=== PATIENT | female | born 1980 | race Caucasian/White ===

== ENCOUNTER 2021-11-08 19:10 | Emergency (ER) | payer BC ==
[2021-11-08] MEDS ORDERED: ZOFRAN ODT 4 MG PO ONE (19:20)
[2021-11-08] MEDS ORDERED: TORAdol 30 mg Injection ONE (19:26)
[2021-11-08] MEDS ORDERED: ZOFRAN ODT 4 MG ONE (19:26)
[2021-11-08] MEDS ORDERED: TORAdol 30 mg Injection IM ONE (19:27)
--- NOTE | 2021-11-08 19:59 | ERPHSYRPT ---
- History of Present Illness Time Seen by Provider: 11/08/21 19:56 Source: patient Exam Limitations: no limitations Patient Subjective Stated Complaint: pt state "I fell down three steps and heard it pop." Triage Nursing Assessment: pt came into the er via wheelchair; pt is axo x4; c/o rt foot injury; pt states 7/10 pain to rt foot; strong rt pedal pulses; swelling present to top of rt foot; no bruise present; good cap refill; hypertension; tac hycardic Physician History: pt state "I fell down three steps and heard it pop." c/o rt foot injury; pt states 7/10 pain to rt foot; strong rt pedal pulses; swelling present to top of rt foot; no bruise present; Method of Injury: fell Occurred: just prior to arrival Quality: constant Severity of Pain-Max: moderate Severity of Pain-Current: moderate Lower Extremities Pain: foot: right, ankle: right Modifying Factors: Improves With: cold therapy Associated Symptoms: unable to bear weight Allergies/Adverse Reactions: nut - unspecified Allergy (Verified 11/08/21 19:16) Home Medications: Albuterol/Ipratropium 3ml Neb* [DUONEB 0.5-3 MG/3 ml Neb] 3 ml IH TIDPRN 06/26/14 [History] Cetirizine HCl [Zyrtec] 10 mg PO DAILY 06/26/14 [History] Budesonide/Formoterol Fumarate [Symbicort 160-4.5 Mcg Inhaler] 6 gm IH BID 11/27/15 [History] Vits W-Ca,Fe,FA(<1Mg) [] 1 each PO DAILY 11/27/15 [History] Hx Tetanus, Diphtheria Vaccination/Date Given: Yes Hx Influenza Vaccination/Date Given: Yes Hx Pneumococcal Vaccination/Date Given: No Immunizations Up to Date: Yes Travel Risk - International Travel Have you traveled outside of the country in past 3 weeks: No - Coronavirus Screening Are you exhibiting any of the following symptoms?: No Close contact with a COVID-19 positive Pt in past 14-21 Days: No - Vaccine Status Have you recieved a Covid-19 vaccination: Yes Developer Evangelist: Moderna - Vaccination Dates Date of 2cond Vaccination (if applicable): 11/08 - Review of Systems Constitutional: No Symptoms Eyes: No Symptoms Ears, Nose, & Throat: No Symptoms Respiratory: No Symptoms Cardiac: No Symptoms Abdominal/Gastrointestinal: No Symptoms Genitourinary Symptoms: No Symptoms Musculoskeletal: Fall, Joint Pain (right ankle), Joint Swelling - Past Medical History Pertinent Past Medical History: Yes Neurological History: Migraines ENT History: No Pertinent History Cardiac History: No Pertinent History Respiratory History: Asthma, Sleep Apnea Endocrine Medical History: No Pertinent History Musculoskeletal History: No Pertinent History GI Medical History: GERD, Gallbladder Disease History: No Pertinent History Psycho-Social History: No Pertinent History Female Reproductive Disorders: No Pertinent History - Past Surgical History Past Surgical History: Yes Neuro Surgical History: No Pertinent History Cardiac: No Pertinent History Respiratory: No Pertinent History Gastrointestinal: No Pertinent History Genitourinary: No Pertinent History Musculoskeletal: No Pertinent History Female Surgical History: Section Other Surgical History: csection times 2 - Social History Smoking Status: Never smoker Exposure to second hand smoke: No Drug Use: none Patient Lives Alone: No - Female History Hx Now: No - Nursing Vital Signs Nursing Vital Signs: Initial Vital Signs Temperature 97.7 F 11/08/21 19:17 Pulse Rate 113 H 11/08/21 19:17 Respiratory Rate 22 11/08/21 19:17 Blood Pressure 186/105 11/08/21 19:17 O2 Sat by Pulse Oximetry 99 11/08/21 19:17 Pain Scale Pain Intensity 7 - Physical Exam General Appearance: no apparent distress Eyes, Ears, Nose, Throat Exam: normal ENT inspection Neck Exam: normal inspection Cardiovascular/Respiratory Exam: chest non-tender Gastrointestinal/Abdominal Exam: non-tender Back Exam: normal inspection Ankle Exam: right ankle: soft tissue tenderness Foot Exam: right foot: soft tissue tenderness Neuro/Tendon Exam: normal sensation Mental Status Exam: alert, oriented x 3 Skin Exam: normal color SpO2 Interpretation: normal SpO2: 99 O2 Delivery: Room Air - Course Nursing assessment & vital signs reviewed: Yes - Radiology Exams Right Ankle X-ray Interpretation: Reviewed by me, Teleradiologist Report, Negative, No Fracture, No Subluxation Ordered Tests: Active Orders 24 hr Category Date Time Status ANKLE (3 VIEWS) Stat Exams 11/08/21 19:20 Taken FOOT (MINIMUM 3 VIEWS) Stat Exams 11/08/21 19:20 Taken Medication Summary Discontinued Medications Generic Name Dose Route Start Last Admin Trade Name Freq PRN Reason Stop Dose Admin Ketorolac Tromethamine 60 mg 11/08/21 19:27 11/08/21 19:29 Ketorolac Tromethamine 30 Mg/Ml Inj IM 11/08/21 19:28 60 mg STAT ONE Administration Ketorolac Tromethamine Confirm 11/08/21 19:26 Ketorolac Tromethamine 30 Mg/Ml Inj Administered 11/08/21 19:27 Dose 60 mg .ROUTE .STK-MED ONE Ondansetron HCl 4 mg 11/08/21 19:20 11/08/21 19:29 Zofran 4 Mg/Udtablet Orally Disintegrating PO 11/08/21 19:21 4 mg STAT ONE Administration Ondansetron HCl Confirm 11/08/21 19:26 Zofran 4 Mg/Udtablet Orally Disintegrating Administered 11/08/21 19:27 Dose 4 mg .ROUTE .STK-MED ONE - Progress Progress: improved, pain not gone completely Counseled pt/family regarding: diagnosis, need for follow-up, rad results - Departure Departure Disposition: Home Clinical Impression: Right ankle sprain Qualifiers: Encounter type: initial encounter Involved ligament of ankle: deltoid ligament Qualified Code(s): S93.421A - Sprain of deltoid ligament of right ankle, initial encounter Condition: Stable Critical Care Time: No Referrals: KAMALA BAUTISTA [Primary Care Provider] - Follow up/PCP as directed Instructions: Foot Sprain (DC) Additional Instructions: Discharge/Care Plan MELIA KENNY was seen on 11/08/21 in the Emergency Room. The patient was counseled regarding Diagnosis,Lab results, Imaging studies, need for follow up and when to return to the Emergency Room. Prescriptions given: Discharge Note I have spoken with the patient and/or caregivers. I have explained the patient's condition, diagnosis and treatment plan based on the information available to me at this time. I have answered the patient's and/or caregiver's questions and addressed any concerns. The patient and/or caregivers have as good understanding of the patient's diagnosis, condition and treatment plan as can be expected at this point. The vital signs have been stable. The patient's condition is stable and appropriate for discharge from the emergency department. The patient will pursue further outpatient evaluation with the primary care physician or other designated or consulting physician as outlined in the discharge instructions. The patient and/or caregivers are agreeable to this plan of care and follow-up instructions have been explained in detail. The patient and/or caregivers have received these instruction. The patient/and or caregivers are aware that any significant change in condition or worsening of symptoms should prompt an immediate return to this or the closest emergency department or call 911. MELIA KENNY was seen on 11/08/21 n the Emergency Room. At that time you were treated for an emergent condition, during your visit Laboratory, Radiology and/or other procedures may have been ordered. It is very important that you follow-up with your Primary Care Physician KAMALA BAUTISTA within the next 24-48 hours to review your Emergency Room visit and the final results of testing that was ordered. Some test results such as Urine Cultures, Blood Cultures, and other cultures if ordered will not be finalized for 24-48 hours. If you do not have a Primary Care Provider please call the medical records department at [phone] ext [phone] to obtain a copy of your results or you may sign into our patient portal to obtain these results by visiting us @ [email or web address] and completing the following steps: 1. Click on the Patient Portal link 2. Click the Patient Self Enrollment Link to complete the enrollment form and entering your 3. Once the enrollment form is completed you will receive an email with a temporary ID and password at the email address you provided. 4. Next choose a user name and password. Your user name must be at least 4 characters long and your password must be at least 4 characters long. 5. Choose a security question from the list and provide your answer to the question. If you already have signed into the Health Portal you may access your Health Care Information 11/01 by the following steps: 1. Login to our website @ [email or web address] 2. Enter your original user name and password. FAQS The [facility] Health Portal is an online tool that contains your Lab Results, Radiology Reports, Visit History, Discharge Instructions and Health Summary Lab and Radiology Results will not be available for 72 hours on the portal. The Portal is a secure site, passwords are encryted and URLs are re-written so they cannot be copied and pasted. You and authorized family members are the only ones who can access your Portal. Also there is a timeout feature that protects your information if you leave the Portal page open. If you have technical difficulty please use the Contact Us link on the page this will allow you to submit any questions you have regarding the Portal or you may contact the Medical Record Department at [phone] ext [phone]. Take 500 mg Tylenol with 400 mg ibuprofen 3 times a day with food for next 2 to 3 days. Keep your ankle brace for next 2 to 3 days. Follow-up with outpatient Ortho clinic either at [facility] at [facility].
[2021-11-08 20:28] VITALS: BP 184/86; PULSE 100; O2SAT 97
--- NOTE | 2021-11-09 08:22 | XRAY ---
Indication: Pain following fall/twisting injury. Comparison: None 3 view right ankle demonstrates small posterior/plantar heel spurs. No other bony, articular, or soft tissue abnormalities. Comment: Preliminary interpretation made by C. No critical discrepancy.
--- NOTE | 2021-11-09 08:22 | XRAY ---
Indication: Pain following fall/twisting injury. Comparison: None 3 nonweightbearing views right foot demonstrates small posterior/plantar heel spurs. No other bony, articular, or soft tissue abnormalities. Comment: Preliminary interpretation made by C. No critical discrepancy.
== END 2021-11-08 20:28 | disposition home or self-care (01) ==
LOC: ED 19:10
DX: S93.421A Sprain of deltoid ligament of right ankle, initial encounter (principal); W10.9XXA Fall (on) (from) unspecified stairs and steps, initial encounter; M25.571 Pain in right ankle and joints of right foot
CPT/HCPCS: 73610; 73630; 96372; 99284; J1885; Q0162

== ENCOUNTER 2022-11-13 06:34 | Day surgery (SDC) | payer BC ==
[~2022-11-13 06:34] MED LIST: Marcaine Mpf 0.5% Vial 30 Ml ONE; Xylocaine 1% Vial 30 ML PF IJ ONE
[2022-11-13] MEDS ORDERED: EXPAREL 133 MG/10 ML VIAL IJ ONE (06:35)
[2022-11-13] MEDS ORDERED: Transderm Scop 1.5MG Patch TOP PRN (06:53)
[2022-11-13] MEDS ORDERED: Reglan 10 MG/2 ML IV ONE (06:53)
[2022-11-13] MEDS ORDERED: Pepcid 20 MG VIAL IV ONE ×2 (06:53→07:23)
[2022-11-13 06:59] LABS: HCG URINE TEST NEGATIVE (NEGATIVE)
[2022-11-13] MEDS ORDERED: CEFAZOLIN 2 GM-D5W BAG** 2 GM/50 ML ML IV SCH (07:00)
[2022-11-13] MEDS ORDERED: Lactated Ringers 1,000 ML IV SCH (07:00)
[2022-11-13] MEDS ORDERED: Sodium Chloride 3 ML UD NEBULES IH ONE (07:00)
[2022-11-13] MEDS ORDERED: Xopenex 1.25 MG/0.5 ML UD NEBULE IH ONE (07:00)
[2022-11-13] MEDS ORDERED: Transderm Scop 1.5MG Patch ONE (07:23)
[2022-11-13] MEDS ORDERED: Reglan 10 MG/2 ML ONE (07:23)
[2022-11-13] MEDS ORDERED: Versed 2 MG/2 ML Injection ONE ×2 (07:23→08:47)
[2022-11-13] MEDS ORDERED: CEFAZOLIN 2 GM-D5W BAG** 2 GM/50 ML ML IV ONE (07:23)
[2022-11-13] MEDS ORDERED: Lactated Ringers 1,000 ML IV ONE (07:24)
[2022-11-13] MEDS ORDERED: Versed 2 MG/2 ML Injection IV PRN (07:29)
[2022-11-13] MEDS ORDERED: Epinephrine Preservative Free 1 MG/ML ONE (07:31)
[2022-11-13 07:43] LABS: Hematocrit 43.5 % (35-47); Hemoglobin 14.1 g/dL (12.0-16.0); Mean Cell Volume 88.8 fL (78-100); Mean Corpuscular Hemoglobin 28.8 pg (26-32); Mean Corpuscular Hgb Concent. 32.4 g/dL (32-36); Mean Platelet Volume 11.3 fL (7.5-11.0); Platelet Count 194 x10^3/uL (150-450); Red Cell Distribution Width 12.8 % (11.5-14.0); White Blood Count 5.3 x10^3/uL (4.0-10.5)
[2022-11-13 07:58] LABS: ALBUMIN 4.5 g/dL (3.5-5.0); ALKALINE PHOSPHATASE 55 U/L (38-126); ANION GAP 14.9 MEQ/L (5-15); BLOOD UREA NITROGEN 11 mg/dL (7-17); CHLORIDE 106 mmol/L (98-107); Carbon Dioxide 23 mmol/L (22-30); Creatinine 1 0.84 mg/dL (0.52-1.04); EST GLOMERULAR FILTRATION RATE > 60.0 ML/MIN; Glucose 116 mg/dL (74-106); Potassium 3.9 mmol/L (3.5-5.1); SGOT/AST 22 U/L (14-36); SGPT/ALT 20 U/L (0-35); SODIUM 140 mmol/L (137-145)
[2022-11-13 08:00] LABS: INR 0.95 (0.8-3.0); PROTIME 10.4 SECONDS (9.4-12.5); PTT 27.7 SECONDS (25.1-36.5)
[2022-11-13] MEDS ORDERED: Marcaine Mpf 0.5% Vial 30 Ml ONE (08:17)
[2022-11-13] MEDS ORDERED: Sensorcaine 0.25% 10 ML ONE (08:17)
[2022-11-13] MEDS ORDERED: SUBLIMAZE 100 MCG/2 ML ONE ×2 (08:47→08:49)
[2022-11-13] MEDS ORDERED: DIPRIVAN 200 MG/20 ML IV ONE (09:57)
[2022-11-13] MEDS ORDERED: Xylocaine-Mpf 2% 5 Ml Vial ONE (09:57)
[2022-11-13] MEDS ORDERED: Zofran 4 MG/2 ML VIAL ONE (09:57)
[2022-11-13] MEDS ORDERED: DEXMEDETOMIDINE 80 MCG/20ML-NS IV ONE (09:57)
[2022-11-13] MEDS ORDERED: Quelicin Fliptop 200 MG/10 ML ONE (09:57)
[2022-11-13] MEDS ORDERED: Decadron 4 MG INJ ONE (09:57)
[2022-11-13] MEDS ORDERED: Pre-Attached Lta Kit TP ONE (10:05)
[2022-11-13] MEDS ORDERED: OFIRMEV 100 ML IV ONE (10:05)
[2022-11-13] MEDS ORDERED: BRIDION 200MG/2ML IV ONE (11:32)
--- NOTE | 2022-11-13 11:59 | XRAY ---
Indication: Right foot talonavicular ligament repair and ankle arthroscopy with synovectomy. Intraoperative fluoroscopy provided for 1 minute 44 seconds. 11 digital spot images submitted for interpretation demonstrates instrumentation talus and navicular bones. Correlate with intraoperative findings/report.
[2022-11-13 12:51] VITALS: BP 142/90; PULSE 101; O2SAT 98
--- NOTE | 2022-11-13 14:31 | XRAY ---
1 minute 44 seconds of fluoroscopy was used in surgery for a right foot talonavicular ligament repair and ankle arthroscopy with synovectomy.
--- NOTE | 2022-11-17 10:24 | OP ---
SURGERY DATE/TIME: 11/13/2022 1011 PREOPERATIVE DIAGNOSES: 1) Chronic ankle instability right. 2) Pain right ankle. 3) Effusion right ankle. 4) Closed navicular fracture. 5) Dorsal talonavicular ligament instability. POSTOPERATIVE DIAGNOSES: 1) Chronic ankle instability right. 2) Pain right ankle. 3) Effusion right ankle. 4) Closed navicular fracture. 5) Dorsal talonavicular ligament instability. PROCEDURES: 1) Ankle arthroscopy with synovectomy complete right ankle. 2) Excision of bone navicular partial. 3) Repair of dorsal talonavicular ligament with internal brace stabilization. SURGEON: Gabo Dawson DPM. MANAGER PRINT: None. ANESTHESIA: General. HEMOSTASIS: Thigh tourniquet set to 350 mm of Mercury for 25 total tourniquet minutes. ESTIMATED BLOOD LOSS: Minimal. INJECTABLES: See anesthesia report for details. INDICATION FOR SURGERY: Monie is a very pleasant 42-year-old female who presented to my clinic with complaints of continued pain to the right ankle as well as the dorsal aspect of the rear foot after having suffered an injury. The patient had a significant amount of pain as well as instability over the dorsal aspect of the mid-foot. She was diagnosed with a dorsal fracture of the navicular which was fairly extensive in instability and her pain which was localized over the talonavicular joint. The patient also had a positive Kwaku's test as well as increasing pain to the ankle joint. The patient failed conservative treatment for this with myself as well as another provider and decided to proceed with surgical intervention at this time. The patient understands all risks, complications and benefits of surgical intervention including but not limited to infection, hematoma, seroma, possibility of delayed wound healing, nonwound healing, possibility of failure of surgical intervention, possible need for surgical intervention at a later date. No guarantees were provided as to the outcome of surgical intervention. Plenty of time was allowed for the patient to ask questions which were answered to her apparent satisfaction. It is with that we proceed at this time. DESCRIPTION OF PROCEDURE AND FINDINGS: The patient is brought into the OR and placed on the OR table in the supine position. At this time, general anesthesia was administered until the patient was sedated. The patient then had a well-padded thigh tourniquet applied to the right thigh and the tourniquet was set to 350 mm of Mercury. At this time the right lower extremity was prepped and draped in the typical sterile fashion and lowered onto the surgical field. At this time attention was directed to the right ankle where landmarks were identified. Medial and lateral malleolus were identified and the palpable dell at the dorsiflexion of the ankle was identified. Landmarks were drawn out and the identifying positions just medial to the tibialis anterior tendon along these planned line was established an anterior medial portal. At this time 50 cc syringe of lactated Ringer's was injected in an 18 gauge needle into the anterior medial portal insufflating the ankle cautiously with 20 cc of fluid. The portal was then established first utilizing an 11 blade to make an incision through the skin and then mini-curved hemostat was placed to the level of the capsule. A blunt trocar with obturator was then introduced into the anteromedial aspect of the site. When the obturator was removed from the trocar the insufflation fluid came out. A 4.0 x 30 mm camera was then introduced into the anterior medial aspect of the ankle joint gaining excellent visualization right off the bat. Lights were turned on. Under direct visualization of the light, the superficial peroneal nerve was then identified. Incision with 11 blade was made just lateral to this landmark and deepened utilizing a mini-curved hemostat until once again the insufflation fluid was seen. The 2.5 mm shaver was then introduced in the lateral portal and extensive synovectomy then began. Multiple pictures were taken throughout the process of the synovectomy demonstrating how much crabmeat synovitis was present as well as hemorrhagic synovitis which was then removed from the site. Multiple views were taken of the anterior aspect of the ankle joint where as we cleaned the joint it improved the scar tissue. The cartilage was then assessed and deemed to be of adequate quality probing one central area which looked concerning. However, there was no indications of extensive damage to the cartilage of the ankle joint. At this time the camera and the shaver were moved from the portals and images were reversed. We then took multiple pictures of the joints and the camera and shaver were withdrawn. At this time Esmarch was utilized to exsanguinate the leg and attention was directed to the dorsomedial aspect of the foot. At this time under fluoroscopic guidance decision planning was made. The dorsal talonavicular ligament was stressed and a significant amount of gapping was seen at the dorsal aspect of this joint. A dorsal incision slightly curvilinear at its proximal extent was carried down being careful not to damage any neurovascular structures in this site. A Abigail was introduced into the site to retract the soft tissue down to the level of the bone. Excision of the dorsal navicular was performed where the fracture was identified and removed. The dorsal talonavicular ligament was then identified and deemed to be incompetent. A 4.5 JuggerKnot was then introduced in two locations on the navicular and the dorsal talar neck where this was utilized to repair the distal extent of the talonavicular ligament. Stress views were taken before and after deeming it to be in adequate repair of the ligament. An internal brace was then fashioned out of the 1.45 JuggerKnot from the dorsal aspect of the talar neck to the navicular body. Following this copious amounts of sterile were utilized to flush the surgical site. A dressing consisting of Betadine, Adaptic, 4x4, Kerlix and LUL was applied to the patient's right lower extremity with the foot orthogonal relative to longitudinal axis of the leg. The patient was then reversed from anesthesia and returned to the postoperative anesthesia care unit with vital signs stable and vascular status intact. The patient handled the anesthesia as well as the procedure without significant complication. Postoperative orders as indicated in the patient's discharge chart.
== END 2022-11-13 12:52 | disposition home or self-care (01) ==
LOC: SDC 06:34
PROVIDERS: ATTEND Podiatrist Foot & Ankle Surgery
DX: S92.254A Nondisplaced fracture of navicular [scaphoid] of right foot, initial encounter for closed fracture (principal); M25.471 Effusion, right ankle; M25.571 Pain in right ankle and joints of right foot; M25.371 Other instability, right ankle
CPT/HCPCS: 27695; 28238; 29895; 36415; 73610; 76000; 76937; 80053; 81025; 85027; 85610; 85730; 94640; C1713; J0171; J0330; J0690; J1100; J2001; J2250; J2405; J2704; J3010; J7614; A9270-GY